=== PATIENT | female | born 1965 ===

== ENCOUNTER 2018-03-18 20:49 | Emergency (ER) | payer MEDICAID ==
[2018-03-18 20:56] VITALS: RESP 16; TEMP 98.7; O2SAT 99
--- NOTE | 2018-03-18 21:00 | ED PDOC ---
HPI: Back Time Seen by Provider: 03/18/18 21:00 Chief Complaint (Nursing): Back Pain Chief Complaint (Provider): back pain History Per: Patient Additional Complaint(s): 52 y/o female presents with pain to left side of lower back that started yesterday. Patient states yesterday she took ibuprofen which did help the pain. Today she took ibuprofen again but the pain was still persistent. She denies fall or trauma. She does state the pain radiates down her left leg. Patient states she has had back pain in the past but this typically on the right side. She denies any acute bowel or bladder dysfunction. No associated fever or chills. PMD: can't remember name Past Medical History Reviewed: Historical Data, Nursing Documentation, Vital Signs Vital Signs: Last Vital Signs Temp 98.7 F 03/18/18 20:57 Pulse 81 03/18/18 20:57 Resp 16 03/18/18 20:57 BP 154/62 H 03/18/18 20:57 Pulse Ox 99 03/18/18 20:57 - Medical History PMH: Back Problems - Surgical History Surgical History: Appendectomy Other surgeries: lipoma removal from upper back - Family History Family History: States: No Known Family Hx - Living Arrangements Living Arrangements: With Family - Social History Current smoker - smoking cessation education provided: No Alcohol: Social Drugs: Denies - Home Medications Home Medications: Ambulatory Orders Medication Instructions Recorded Nabumetone [Relafen] 500 mg PO BID #20 tab 03/18/18 Prednisone 50 mg PO DAILY #5 tablet 03/18/18 diaZEpam [Valium] 5 mg PO Q8 PRN #20 tab 03/18/18 - Allergies Allergies/Adverse Reactions: Allergies Allergy/AdvReac Type Severity Reaction Status Date / Time No Known Allergies Allergy Verified 03/18/18 20:57 Review of Systems ROS Statement: Except As Marked, All Systems Reviewed And Found Negative Constitutional: Negative for: Fever, Chills Cardiovascular: Negative for: Chest Pain Respiratory: Negative for: Cough Gastrointestinal: Negative for: Nausea, Vomiting Genitourinary Female: Negative for: Dysuria, Frequency, Incontinence Musculoskeletal: Positive for: Back Pain, Leg Pain (left) Physical Exam - Reviewed Nursing Documentation Reviewed: Yes Vital Signs Reviewed: Yes - Physical Exam Appears: Positive for: Well, Non-toxic, No Acute Distress Skin: Positive for: Normal Color. Negative for: Rash Eye Exam: Positive for: Normal appearance Neck: Positive for: Normal Cardiovascular/Chest: Positive for: Regular Rate, Rhythm Respiratory: Positive for: Normal Breath Sounds Gastrointestinal/Abdominal: Positive for: Soft. Negative for: Tenderness, Distended, Guarding, Rebound Back: Positive for: Vertebral Tenderness (Tenderness and muscle spasm left lower lumbar region, no midline tenderness or step-off, and no CVA tenderness bilaterally) Extremity: Positive for: Normal ROM. Negative for: Pedal Edema Neurologic/Psych: Positive for: Alert, Oriented - Laboratory Results Urine POC: Negative Urine dip results: Positive for: Blood (trace). Negative for: Leukocyte Esterase, Nitrate, Ketones, Glucose, Bilirubin, Protein - ECG O2 Sat by Pulse Oximetry: 99 Pulse Ox Interpretation: Normal - Other Rad LS Spine X-ray X-Ray: Interpreted by Me, Viewed By Me X-Ray Interpretation: no fx, no dis Medical Decision Making Medical Decision Makin-year-old female with left side low back. Plan: PO tylenol PO tramadol PO flexeril PO Prednisone Lidoderm patch X-ray LS Spine Urine dip Patient reports good pain relief s/p meds given. Rx given for prednisone, Valium, tramadol and Relafen. Patient was referred to clinic for follow-up. Disposition - Clinical Impression Clinical Impression: Back strain - Patient ED Disposition Is Patient to be Admitted: No Counseled Patient/Family Regarding: Studies Performed, Diagnosis, Need For Followup, Rx Given - Disposition Referrals: [facility] [Outside] Jc Ramirez MD [Staff Provider] - Disposition: Routine/Home Disposition Time: 22:27 Condition: IMPROVED Additional Instructions: Take rx meds as directed. Rest and avoid heavy lifting. Call clinic tomorrow to arrange for follow up visit. Return any time if acutely worse. Prescriptions: diaZEpam [Valium] 5 mg PO Q8 PRN #20 tab PRN Reason: Muscle Pain Nabumetone [Relafen] 500 mg PO BID #20 tab Prednisone 50 mg PO DAILY #5 tablet Instructions: Muscle Strain, Low Back Pain in Adults, Back Exercises Forms: [employer] (Urdu)
[2018-03-18] MEDS ORDERED: Lidocaine 5% Patch TD STA (21:04)
[2018-03-18] MEDS ORDERED: Lidocaine 5% Patch TD ONE (21:16)
[2018-03-18 22:27] VITALS: BP 138/67; PULSE 74
--- NOTE | 2018-03-19 09:10 | RAD ---
Date of service: 03/18/2018 PROCEDURE: Radiographs of the Lumbar Spine. HISTORY: left side low back pain COMPARISON: No prior. FINDINGS: BONES: Straightened lumbar curvature without fracture or spondylolisthesis. Limited disc height loss is seen at L3-4 L4-5 as well as spondylosis compatible degenerative disc changes. No destructive bony changes are grossly evident. 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 DISC SPACES: As above. OTHER FINDINGS: None. IMPRESSION: Limited multilevel degenerative disc disease. No fracture or spondylolisthesis mild straightening of curvature.
== END 2018-03-18 22:27 | disposition home or self-care (01) ==
LOC: H.ER 20:49
DX: S39.012A Strain of muscle, fascia and tendon of lower back, initial encounter (principal); Y92.89 Other specified places as the place of occurrence of the external cause

== ENCOUNTER 2018-05-22 18:53 | Emergency (ER) | payer MEDICAID ==
[2018-05-22 19:12] VITALS: BP 121/82; PULSE 88; RESP 18; TEMP 98.5; O2SAT 99
[2018-05-22] MEDS ORDERED: Tdap Vaccine 0.5 ml Vial (10-64 yrs) IM ONE ×2 (19:26→20:01)
--- NOTE | 2018-05-22 20:15 | ED PDOC ---
HPI: Skin/Bite Injury Time Seen by Provider: 05/22/18 19:16 Chief Complaint (Nursing): Bite Chief Complaint (Provider): Bite History Per: Patient History/Exam Limitations: no limitations Onset/Duration Of Symptoms: Days (x1 day) Additional Complaint(s): Patient reports having localized pain to her right forearm when she was bit by a dog yesterday, when she entered someone's home. Patient is familiar with diesel truck technician and the dog is up to date with vaccinations and domesticated for its entire life. Patient can not remember when she last received her tetanus. She has not taken any medications prior to arrival at ED. Otherwise: (-) numbness, (-) other injury. PMD: None - Animal Bite Description Of The Animal: Family Pet Animal's Immunization Status: UTD Past Medical History Reviewed: Historical Data, Nursing Documentation, Vital Signs Vital Signs: Last Vital Signs Temp 98.5 F 05/22/18 19:09 Pulse 88 05/22/18 19:09 Resp 18 05/22/18 19:09 BP 121/82 05/22/18 19:09 Pulse Ox 99 05/22/18 19:09 - Medical History PMH: Back Problems - Surgical History Surgical History: Appendectomy - Family History Family History: States: Unknown Family Hx - Home Medications Home Medications: Ambulatory Orders Medication Instructions Recorded Faisal Plus Allerg-Cough 11/14/16 Azithromycin [Zithromax] 250 mg PO DAILY #6 tab 11/14/16 Contac Cold-Flu Caplet 11/14/16 Mucinex 11/14/16 Nabumetone [Relafen] 500 mg PO BID #20 tab 03/18/18 RX: Prednisone 50 mg PO DAILY #5 tablet 03/18/18 diaZEpam [Valium] 5 mg PO Q8 PRN #20 tab 03/18/18 RX: Bacitracin Ointment 1 applic TOP BID #1 tube 05/22/18 [Bacitracin] RX: Clindamycin [Cleocin] 300 mg PO TID #21 cap 05/22/18 RX: Naproxen 500 mg PO BID PRN #20 tab 05/22/18 - Allergies Allergies/Adverse Reactions: Allergies Allergy/AdvReac Type Severity Reaction Status Date / Time Penicillins Allergy Unknown RASH Verified 05/22/18 19:08 Review of Systems ROS Statement: Except As Marked, All Systems Reviewed And Found Negative Musculoskeletal: Positive for: Arm Pain (right forearm ) Physical Exam - Reviewed Nursing Documentation Reviewed: Yes Vital Signs Reviewed: Yes - Physical Exam Comments: GENERAL APPEARANCE: Patient is awake, alert, oriented x 3, in no acute distress, resting comfortably. SKIN: Warm, dry; (-) cyanosis. NECK: Supple, FROM CHEST AND RESPIRATORY:(-) rales, (-) rhonchi, (-) wheezes; breath sounds equal bilaterally. HEART AND CARDIOVASCULAR: (-) irregularity EXTREMITY: 2mm by 3mm puncture wound x1 to distal ventral right forearm with surrounding ecchymosis; (+) Full ROM of upper extremity, (+) sensation and di stal pulses intact; (-) erythema, (-) warmth, (-) cellulitis NEURO AND PSYCH: Mental status as above. Gait: steady. Speech: clear. - ECG O2 Sat by Pulse Oximetry: 99 (RA) Pulse Ox Interpretation: Normal Medical Decision Making Medical Decision Making: Initial Time: 19:20 Initial Impression: Dog bite Initial Plan: --Cleocin 300 mg PO --Adacel (10-64 years) -- In light of history, rabies prophylaxis is not required at this time. 2054 On re-evaluation, patient reports improvement of symptoms. On exam, patient remains AAOx3, in no acute distress. Lungs clear to auscultation, cardiac RRR, repeat neuro exam shows no focal findings. Vitals stable. Educated on wound care. Lab/Diagnostic results d/w the patient in great detail. Diagnosis of dog bite, wound check d/w the patient. Based on history, exam and diagnostic results, plan will be for outpatient follow up with PMD/clinic. Patient instructed to follow-up with pmd / referral provided / the clinic in 1- 2 days without fail. Advised to take medication as prescribed. Return to the emergency room at any time for any new or worsening symptoms. Patient states she fully agrees with and understands discharge instructions. States that she agrees with the plan and disposition. Verbalized and repeated discharge instructions and plan. I have given the patient opportunity to ask any additional questions. Scribe Attestation: Documented by Quinten Baldwin, acting as a scribe for Jessica Cordero Provider Scribe Attestation: All medical record entries made by the Scribe were at my direction and personally dictated by me. I have reviewed the chart and agree that the record accurately reflects my personal performance of the history, physical exam, medical decision making, and the department course for this patient. I have also personally directed, reviewed, and agree with the discharge instructions and disposition. Disposition - Clinical Impression Clinical Impression: Dog bite of arm, Visit for wound check - Patient ED Disposition Is Patient to be Admitted: No Counseled Patient/Family Regarding: Studies Performed, Diagnosis, Need For Followup, Rx Given - Disposition Referrals: [facility] [Outside] Disposition: Routine/Home Disposition Time: 20:55 Condition: STABLE Additional Instructions: The emergency medical care you received today was directed at your acute symptoms. If you were prescribed any medication, please fill it and take as directed. It may take several days for your symptoms to resolve. Return to the Emergency Department if your symptoms worsen, do not improve, or if you have any other problems. Please contact your doctor in 2 days for re-evaluation and follow up / or call one of the physicians/clinics you have been referred to that are listed on the Patient Visit Information form that is included in your discharge packet. Bring any paperwork you were given at discharge with you along with any medications you are taking to your follow up visit. Our treatment cannot replace ongoing medical care by a primary care provider (PCP) outside of the emergency department. Prescriptions: RX: Bacitracin Ointment [Bacitracin] 1 applic TOP BID #1 tube RX: Clindamycin [Cleocin] 300 mg PO TID #21 cap RX: Naproxen 500 mg PO BID PRN #20 tab PRN Reason: Pain, Moderate (4-7) Instructions: Animal Bites (DC), Wound Care Forms: [employer] (Ethiopian) Print Language: FRISIAN - POA Present On Arrival: None
== END 2018-05-22 21:45 | disposition home or self-care (01) ==
LOC: H.ER 18:53
DX: S41.151A Open bite of right upper arm, initial encounter (principal); W54.0XXA Bitten by dog, initial encounter; Y92.89 Other specified places as the place of occurrence of the external cause; Z88.0 Allergy status to penicillin